=== PATIENT | male | born 1940 | race Caucasian/White ===

== ENCOUNTER 2023-10-22 10:15 | Emergency (ER) | payer MEDICARE ==
[2023-10-22] MEDS ORDERED: HYDROcodone/Acetaminophen 5/325 mg Tablet ONE (12:36)
== END 2023-10-22 13:08 | disposition home or self-care (01) ==
LOC: CSHERS 10:15
DX: M54.50 Low back pain, unspecified (principal); E11.9 Type 2 diabetes mellitus without complications; I10 Essential (primary) hypertension; Z79.899 Other long term (current) drug therapy
CPT/HCPCS: 99283

== ENCOUNTER 2025-06-15 09:46 | Outpatient (CLI) | payer MEDICARE | END 2025-06-15 09:47 | disposition home or self-care (01) | LOC: CSHWCC 09:46 | PROVIDERS: ATTEND Nurse Practitioner Family | DX: I87.311 Chronic venous hypertension (idiopathic) with ulcer of right lower extremity (principal) | CPT/HCPCS: 11042; G0463; 99214 ==

== ENCOUNTER 2025-06-22 15:44 | Emergency (ER) | payer MEDICARE ==
[2025-06-22 17:06] LABS: #Basophils 0.03 10x3/uL (0.0-0.2); #Eosinophils 0.21 10x3/uL (0.0-0.5); #Monocytes 1.11 10x3/uL (0.0-1.1); #Neutrophils 7.38 10x3/uL (1.5-8.4); %Basophils 0.3 % (0.0-2.0); %Eosinophils 2.0 % (0.0-6.0); %Lymphocytes 17.5 % (18.0-47.0); %Monocytes 10.5 % (0.0-10.0); %Neutrophils 69.4 % (40.0-75.0); Hematocrit 33.0 % (38.8-50.0); Hemoglobin 10.4 g/dL (13.5-17.5); Mean Corpuscular Hemoglobin 26.6 pg (27.0-33.0); Mean Corpuscular Volume 84.4 fL (81.2-95.1); Platelet Count 184 10x3/uL (150-450); Red Blood Cell (RBC) Count 3.91 10x6/uL (4.32-5.72); White Blood Cell (WBC) Count 10.62 10x3/uL (3.5-10.5)
[2025-06-22 17:23] LABS: ALT (SGPT) 70 U/L (Less than 45); AST (SGOT) 75 U/L (11-34); Albumin 3.5 g/dL (3.1-4.5); Alkaline Phosphatase 233 U/L (40-110); Anion Gap 13 mmol/L (10-20); BUN (Urea Nitrogen) 45 mg/dL (8.4-25.7); Bilirubin, Total 0.7 mg/dL (0.3-1.2); Calc. Creatinine Clearance 0 mL/min (70-130); Calcium 9.0 mg/dL (7.8-10.44); Carbon Dioxide 22 mmol/L (23-31); Chloride 109 mmol/L (98-107); Globulin 3.2 g/dL (2.4-3.5); Glucose 102 mg/dL (83-110); Magnesium 2.4 mg/dL (1.6-2.6); Potassium 4.9 mmol/L (3.5-5.1); Sodium 139 mmol/L (136-145)
[2025-06-22 17:28] LABS: Troponin I Less than 0.010 ng/mL (< 0.028)
[2025-06-22 17:34] LABS: Glucose, Urine (Dipstick) Normal (Negative); Leukocyte Negative (Negative); Protein, Urine (Dipstick) 15 mg/dl (Neg-Trace); Specific Gravity, Urine 1.015 (1.005-1.030)
[2025-06-22 17:52] LABS: Bacteria/HPF None Seen HPF (None Seen); CAUTI Indications for Culture Dysuria,urgency,freq; RBC/HPF 0-3 HPF (0-3); Urine Culture Reflex No No; WBC/HPF 0-3 HPF (0-3)
== END 2025-06-22 19:58 | disposition home or self-care (01) ==
LOC: CSHERS 15:44
DX: L03.115 Cellulitis of right lower limb (principal); I95.9 Hypotension, unspecified; I10 Essential (primary) hypertension
CPT/HCPCS: 71045; 80053; 81001; 83605; 83735; 84484; 85025; 93005

== ENCOUNTER 2025-06-23 14:25 | Outpatient (CLI) | payer MEDICARE | END 2025-06-23 14:26 | disposition home or self-care (01) | LOC: CSHWCC 14:25 | PROVIDERS: ATTEND Nurse Practitioner Family | DX: I87.311 Chronic venous hypertension (idiopathic) with ulcer of right lower extremity (principal); L97.919 Non-pressure chronic ulcer of unspecified part of right lower leg with unspecified severity | CPT/HCPCS: 11042; G0463; 99213 ==

== ENCOUNTER 2025-07-06 10:34 | Outpatient (CLI) | payer MEDICARE | END 2025-07-06 10:35 | disposition home or self-care (01) | LOC: CSHWCC 10:34 | PROVIDERS: ATTEND Nurse Practitioner Family | DX: I87.311 Chronic venous hypertension (idiopathic) with ulcer of right lower extremity (principal); L97.212 Non-pressure chronic ulcer of right calf with fat layer exposed; S51.011D Laceration without foreign body of right elbow, subsequent encounter | CPT/HCPCS: 11042 ==

== ENCOUNTER 2025-07-21 10:58 | Outpatient (CLI) | payer MEDICARE | END 2025-07-21 10:59 | disposition home or self-care (01) | LOC: CSHWCC 10:58 | PROVIDERS: ATTEND Nurse Practitioner Family | DX: I87.311 Chronic venous hypertension (idiopathic) with ulcer of right lower extremity (principal); L97.212 Non-pressure chronic ulcer of right calf with fat layer exposed | CPT/HCPCS: 99212; G0463 ==